=== PATIENT | male | born 1940 | race Caucasian/White ===

== ENCOUNTER → 2017-08-05 | Outpatient (CLI) | payer MEDICARE ==
[~2017-08-05] MED LIST: CALCAVITDA PO; Crestor20 MG; FISH1000 PO; GLUC500 PO; LEVSOD100; PANAX GINSENG PO; UBID10 PO
== END ==
LOC: LAB SHORT 07:33 → PLD 07:33
DX: D48.5 Neoplasm of uncertain behavior of skin (principal)
CPT/HCPCS: 88305

== ENCOUNTER → 2017-08-14 | Outpatient (CLI) | payer MEDICARE | LOC: LAB 15:38 → LAB SHORT 15:38 | DX: C30.0 Malignant neoplasm of nasal cavity (principal) | CPT/HCPCS: 88304; 88341; 88342 ==

== ENCOUNTER 2019-03-10 11:38 | Day surgery (SDC) | payer MEDICARE ==
[~2019-03-10] VITALS: Ht 167.6 cm; Wt 72.4 kg
[~2019-03-10 11:38] MED LIST changes: -Crestor20 MG; +Crestor20 MG PO; +DIAZ10 PO; +FISH OIL + D31 EACH PO; +FISH OIL PO; -FISH1000 PO; +Hair, Skin & N1 EACH PO; -LEVSOD100; +LEVSOD100 PO; +MAGNESIUM PO; +SIMBRINZA 1%-0.28 ML BOTHEYES; +TOCO1000 PO; +Travatan Z5 ML BOTHEYES
--- NOTE | 2019-03-10 12:42 | NUR ---
Ambulatory in Day Surgery Patient confirms NPO status and agrees with scheduled surgery. History, Chart, Medications and Allergies reviewed before start of procedure. Patient reports completing Chlorhexadine shower X2 prior to admission to hospital.Surgical site prepped with 2% Chlorhexidine cloth wipe. Lungs clear T/O to Auscultation. PATIENTS AT BEDSIDE. STATES PATIENT IS EASILY CONFUSED. PATIENT TEARFUL AT BEDSIDE. REASSURED
--- NOTE | 2019-03-10 19:12 | NUR ---
recvd report from previous shift RN mindi, pt a/0 x 4, pleasant/cooperative, sitting up in bed eating, call light within reach, bed rails up x2
--- NOTE | 2019-03-10 21:47 | NUR ---
pt repeats questions which have already been answered numerous times, appears to be forgetful, is unable to explain his procedure, will redirect well. up to bathroom with 2 nursing staff assist, gait belt, fww. spinal anesthesia during procedure, unable to urinate, bladder scanned showing 655 ml in bladder. straight catheter inserted and removed 550 ml.
[2019-03-11 04:24] LABS: BASOPHILS ABSOLUTE AUTO 0.01 K/mm3 (0.00-0.23); BASOPHILS PERCENT AUTO 0 % (0-2); EOSINOPHILS PERCENT AUTO 0 % (0-6); Hematocrit 41.1 % (37.0-53.0); Hemoglobin 13.6 g/dL (13.5-17.5); IMMATURE GRAN ABSOLUTE AUTO 0.05 K/mm3 (0.00-0.10); IMMATURE GRAN PERCENT AUTO 0 % (0-1); LYMPHOCYTES ABSOLUTE AUTO 0.85 K/mm3 (0.84-5.20); LYMPHOCYTES PERCENT AUTO 8 % (21-46); MONOCYTES ABSOLUTE AUTO 0.32 K/mm3 (0.16-1.47); MONOCYTES PERCENT AUTO 3 % (4-13); Mean Corpuscular HGB 32.7 pg (26.0-34.0); Mean Corpuscular HGB Conc 33.1 g/dL (31.5-36.5); Mean Corpuscular Volume 99 fL (80-100); Mean Platelet Volume 10.3 fL (9.1-12.4); NEUTROPHILS ABSOLUTE AUTO 10.15 K/mm3 (1.96-9.15); NEUTROPHILS PERCENT AUTO 89 % (41-73); Platelet Count 217 K/mm3 (150-400); RDW Coefficient Variation 12.5 % (11.7-14.2); RDW Standard Deviation 45.4 fL (35.1-46.3); Red Blood Cell Count 4.16 M/mm3 (4.30-5.90); White Blood Cell Count 11.38 K/mm3 (4.00-11.30)
[2019-03-11 04:44] LABS: Anion Gap 7 mmol/L (6-16); Blood Urea Nitrogen 28 mg/dL (8-24); Bun/Creatinine Ratio 28.3 (12.0-20.0); CO2, Blood 24 mmol/L (21-32); Calcium, Blood 8.9 mg/dL (8.5-10.1); Chloride, Blood 109 mmol/L (98-108); Creatinine, Blood 0.99 mg/dL (0.60-1.20); Glomerular Filtration Rate >60 (60-); Glucose, Blood 151 mg/dL (70-99); Magnesium, Blood 1.9 mg/dL (1.6-2.4); Potassium, Blood 4.1 mmol/L (3.5-5.5); Sodium, Blood 140 mmol/L (136-145)
--- NOTE | 2019-03-11 05:00 | NUR ---
shift summary: vss, no acute changes. pt tolerated PO intake with no n/v, encouraged PO fluids. pt up to bathroom x 2 this shift, unable to void earlier, required bladder scan with 655 ml in and straight cath. at approx 0330 pt able to void 100 ml. pt reports pain controlled per mar to his comfort level. pt forgetful at times, required redirection but follows instruction well. operative knee remains intact, good capillary refill, warms in toes, full sensation, able to stand and ambulate.
[2019-03-11] MEDS ORDERED: ASPI325 PO (13:36)
[2019-03-11] MEDS ORDERED: PROM25 PO (13:38)
[2019-03-11] MEDS ORDERED: OXYC5 PO (13:38)
--- NOTE | 2019-03-11 14:22 | NUR ---
PATIENT D/C'D HOME WITH AT THIS TIME; BOTH STATE UNDERSTANDING OF MEDS, WOUND CARE, ACTIVITY, F/U APPT, OP PT, ETC. TOLERATING DIET, VOIDING, PAIN CONTROLLED PER PATIENT. NO ACUTE CHANGES OR C/O.
--- NOTE | 2019-03-12 16:36 | NUR ---
03/12/19 1636 Kailey Ybarra VERIFICATIONS, CHART AUDITS.
== END 2019-03-11 14:20 | disposition home or self-care (01) ==
LOC: ORSCMMR 11:38 → ORD 13:40 → ORSCMMR 13:40 → SURS 18:03 → ORSCMMR 03-11 14:20
PROVIDERS: Orthopaedic Surgery
PROC: 0SRC0J9 Replacement of Right Knee Joint with Synthetic Substitute, Cemented, Open Approach (ICD-10-PCS; principal; 2019-03-10 13:40)
PROC: 8E0YXBZ Computer Assisted Procedure of Lower Extremity (ICD-10-PCS; principal; 2019-03-10 13:40)
DX: M17.11 Unilateral primary osteoarthritis, right knee (principal); E03.9 Hypothyroidism, unspecified; J44.9 Chronic obstructive pulmonary disease, unspecified; E78.5 Hyperlipidemia, unspecified; Z87.891 Personal history of nicotine dependence; Z79.899 Other long term (current) drug therapy
CPT/HCPCS: 36415; 51701; 73560-RT; 80048; 83735; 85025; 88300; 97110; 97116; 97162; 97530; A9270-GY; C1713; C1776; J0171; J0690; J0735; J1100; J1885; J2250; J2370; J2405; J2704; J2795; J3010; J3370; J7120

== ENCOUNTER → 2019-04-14 | Outpatient (CLI) | payer MEDICARE ==
[~2019-04-14] MED LIST changes: +ASPI325 PO; +OXYC5 PO; +PROM25 PO
[2019-04-14 10:55] LABS: BASOPHILS ABSOLUTE AUTO 0.06 K/mm3 (0.00-0.23); BASOPHILS PERCENT AUTO 1 % (0-2); EOSINOPHILS ABSOLUTE AUTO 0.23 K/mm3 (0.00-0.68); EOSINOPHILS PERCENT AUTO 2 % (0-6); Hemoglobin 13.2 g/dL (13.5-17.5); IMMATURE GRAN ABSOLUTE AUTO 0.03 K/mm3 (0.00-0.10); IMMATURE GRAN PERCENT AUTO 0 % (0-1); LYMPHOCYTES ABSOLUTE AUTO 2.03 K/mm3 (0.84-5.20); LYMPHOCYTES PERCENT AUTO 20 % (21-46); MONOCYTES ABSOLUTE AUTO 0.87 K/mm3 (0.16-1.47); MONOCYTES PERCENT AUTO 9 % (4-13); Mean Corpuscular HGB 32.8 pg (26.0-34.0); Mean Corpuscular Volume 99 fL (80-100); NEUTROPHILS ABSOLUTE AUTO 7.06 K/mm3 (1.96-9.15); NEUTROPHILS PERCENT AUTO 69 % (41-73); Platelet Count 334 K/mm3 (150-400); RDW Coefficient Variation 12.8 % (11.7-14.2); RDW Standard Deviation 46.6 fL (35.1-46.3); Red Blood Cell Count 4.03 M/mm3 (4.30-5.90); White Blood Cell Count 10.28 K/mm3 (4.00-11.30)
[2019-04-14 11:17] LABS: Albumin, Blood 3.7 g/dL (3.4-5.0); Albumin/Globulin Ratio 0.8 (0.8-1.8); Bilirubin, Total 0.4 mg/dL (0.1-1.0); Calcium, Blood 11.6 mg/dL (8.5-10.1); Creatinine, Blood 1.63 mg/dL (0.60-1.20); Globulin, Blood 4.4 g/dL (2.2-4.0); Potassium, Blood 3.4 mmol/L (3.5-5.5); Total Protein, Blood 8.1 g/dL (6.4-8.2)
== END | disposition home or self-care (01) ==
LOC: LAB SHORT 10:51 → LAB EV 10:51
PROVIDERS: Physician Assistant
DX: R04.2 Hemoptysis (principal)
CPT/HCPCS: 80053; 85025; 85379

== ENCOUNTER → 2019-04-16 | Outpatient (CLI) | payer MEDICARE ==
[2019-04-16 17:47] LABS: Albumin, Blood 3.4 g/dL (3.4-5.0); Albumin/Globulin Ratio 0.8 (0.8-1.8); Bilirubin, Total 0.2 mg/dL (0.1-1.0); Bun/Creatinine Ratio 20.4 (12.0-20.0); Calcium, Blood 9.8 mg/dL (8.5-10.1); Creatinine, Blood 1.57 mg/dL (0.60-1.20); Globulin, Blood 4.2 g/dL (2.2-4.0); Potassium, Blood 3.9 mmol/L (3.5-5.5); Total Protein, Blood 7.6 g/dL (6.4-8.2)
[2019-04-16 17:54] LABS: BASOPHILS ABSOLUTE AUTO 0.09 K/mm3 (0.00-0.23); BASOPHILS PERCENT AUTO 1 % (0-2); EOSINOPHILS ABSOLUTE AUTO 0.65 K/mm3 (0.00-0.68); EOSINOPHILS PERCENT AUTO 7 % (0-6); Hematocrit 37.4 % (37.0-53.0); IMMATURE GRAN ABSOLUTE AUTO 0.03 K/mm3 (0.00-0.10); IMMATURE GRAN PERCENT AUTO 0 % (0-1); LYMPHOCYTES ABSOLUTE AUTO 2.75 K/mm3 (0.84-5.20); LYMPHOCYTES PERCENT AUTO 31 % (21-46); MONOCYTES ABSOLUTE AUTO 0.79 K/mm3 (0.16-1.47); MONOCYTES PERCENT AUTO 9 % (4-13); Mean Corpuscular HGB 32.7 pg (26.0-34.0); Mean Corpuscular HGB Conc 32.1 g/dL (31.5-36.5); Mean Platelet Volume 10.1 fL (9.1-12.4); NEUTROPHILS ABSOLUTE AUTO 4.45 K/mm3 (1.96-9.15); NEUTROPHILS PERCENT AUTO 51 % (41-73); Platelet Count 274 K/mm3 (150-400); RDW Coefficient Variation 12.6 % (11.7-14.2); RDW Standard Deviation 47.2 fL (35.1-46.3); Red Blood Cell Count 3.67 M/mm3 (4.30-5.90); White Blood Cell Count 8.76 K/mm3 (4.00-11.30)
[2019-04-16 17:56] LABS: Mean Corpuscular Volume 102 fL (80-100)
== END | disposition home or self-care (01) ==
LOC: LAB SHORT 17:22 → LAB EV 17:22
PROVIDERS: Physician Assistant
DX: R53.83 Other fatigue (principal)
CPT/HCPCS: 80053; 85025

== ENCOUNTER → 2020-08-07 | Outpatient (CLI) | payer MEDICARE ==
[2020-08-08 09:54] LABS: Stool Occult Bld Immuno 1 Negative (NEGATIVE); Stool Occult Bld Immuno 2 Negative (NEGATIVE); Stool Occult Bld Immuno 3 Negative (NEGATIVE)
== END | disposition home or self-care (01) ==
LOC: LAB SHORT 15:19 → LAB EV 15:19
PROVIDERS: Physician Assistant
DX: D50.9 Iron deficiency anemia, unspecified (principal)
CPT/HCPCS: 82274

== ENCOUNTER → 2021-02-12 | Outpatient (CLI) | payer MEDICARE ==
[~2021-02-12] MED LIST changes: +EUTHYROX100 MCG PO; +OMEP20ER PO
[2021-02-14 14:38] LABS: CORONAVIRUS (COVID19) CSH-NRL Negative (Negative)
== END ==
LOC: LAB SHORT 12:41 → LAB 12:41
PROVIDERS: Physician Assistant
DX: Z20.822 Contact with and (suspected) exposure to COVID-19 (principal); Z88.8 Allergy status to other drugs, medicaments and biological substances
CPT/HCPCS: U0003

== ENCOUNTER 2021-03-12 19:43 | Inpatient (IN) | payer MEDICARE ==
[~2021-03-12] VITALS: Ht 172.7 cm; Wt 75.7 kg
[~2021-03-12 19:43] MED LIST changes: -EUTHYROX100 MCG PO; -OMEP20ER PO
[2021-03-12 20:43] LABS: BASOPHILS PERCENT AUTO 1 % (0-2); EOSINOPHILS ABSOLUTE AUTO 0.29 K/mm3 (0.00-0.68); EOSINOPHILS PERCENT AUTO 2 % (0-6); Hematocrit 34.2 % (37.0-53.0); IMMATURE GRAN ABSOLUTE AUTO 0.05 K/mm3 (0.00-0.10); IMMATURE GRAN PERCENT AUTO 0 % (0-1); LYMPHOCYTES ABSOLUTE AUTO 3.48 K/mm3 (0.84-5.20); LYMPHOCYTES PERCENT AUTO 28 % (21-46); MONOCYTES ABSOLUTE AUTO 1.13 K/mm3 (0.16-1.47); MONOCYTES PERCENT AUTO 9 % (4-13); Mean Corpuscular HGB 32.3 pg (26.0-34.0); Mean Corpuscular HGB Conc 32.2 g/dL (31.5-36.5); Mean Corpuscular Volume 100 fL (80-100); Mean Platelet Volume 10.8 fL (9.1-12.4); NEUTROPHILS ABSOLUTE AUTO 7.36 K/mm3 (1.96-9.15); NEUTROPHILS PERCENT AUTO 59 % (41-73); Platelet Count 254 K/mm3 (150-400); RDW Coefficient Variation 12.3 % (11.7-14.2); RDW Standard Deviation 44.8 fL (35.1-46.3); Red Blood Cell Count 3.41 M/mm3 (4.30-5.90); White Blood Cell Count 12.41 K/mm3 (4.00-11.30)
[2021-03-12 21:06] LABS: Albumin, Blood 3.1 g/dL (3.4-5.0); Albumin/Globulin Ratio 0.9 (0.8-1.8); Bilirubin, Total 0.2 mg/dL (0.1-1.0); Bun/Creatinine Ratio 42.4 (12.0-20.0); Creatinine, Blood 1.32 mg/dL (0.60-1.20); Globulin, Blood 3.3 g/dL (2.2-4.0); Potassium, Blood 4.1 mmol/L (3.5-5.5); Total Protein, Blood 6.4 g/dL (6.4-8.2)
[2021-03-12 21:37] LABS: Prothrombin Time Results 11.8 Sec (9.7-11.5)
[2021-03-13 01:15] LABS: BASOPHILS ABSOLUTE AUTO 0.08 K/mm3 (0.00-0.23); BASOPHILS PERCENT AUTO 1 % (0-2); EOSINOPHILS ABSOLUTE AUTO 0.04 K/mm3 (0.00-0.68); EOSINOPHILS PERCENT AUTO 0 % (0-6); Hematocrit 29.5 % (37.0-53.0); Hemoglobin 9.6 g/dL (13.5-17.5); IMMATURE GRAN ABSOLUTE AUTO 0.08 K/mm3 (0.00-0.10); IMMATURE GRAN PERCENT AUTO 1 % (0-1); LYMPHOCYTES ABSOLUTE AUTO 3.17 K/mm3 (0.84-5.20); LYMPHOCYTES PERCENT AUTO 26 % (21-46); MONOCYTES ABSOLUTE AUTO 0.71 K/mm3 (0.16-1.47); MONOCYTES PERCENT AUTO 6 % (4-13); Mean Corpuscular HGB Conc 32.5 g/dL (31.5-36.5); Mean Corpuscular Volume 98 fL (80-100); Mean Platelet Volume 10.4 fL (9.1-12.4); NEUTROPHILS ABSOLUTE AUTO 8.08 K/mm3 (1.96-9.15); NEUTROPHILS PERCENT AUTO 66 % (41-73); Platelet Count 207 K/mm3 (150-400); RDW Coefficient Variation 12.4 % (11.7-14.2); RDW Standard Deviation 44.3 fL (35.1-46.3); White Blood Cell Count 12.16 K/mm3 (4.00-11.30)
[2021-03-13 02:12] LABS: SARS-Cov-2 (COVID-19) PCR, MMC NEGATIVE (NEGATIVE)
--- NOTE | 2021-03-13 05:02 | NUR ---
SHIFT SUMMARY- PT. NEW ADMIT FROM ED WITH DX OF GI BLEED. A&OX2 WITH SOME CONFUSION. PT. AMBULATES TO BATHROOM WITH 1 ASSIST. HAD NO COMPLAINTS OF PAIN OR DISCOMFORT T/O THE NIGHT. NO EPISODES OF VOMITING LAST NIGHT. PROTONIX GTT AND FLUIDS INFUSING, TOLERATING WELL. PT. SCHEDULED FOR EGD THIS AFTERNOON. VSS. CALL LIGHT WITHIN REACH, SIDE RAILS UPX2, AND BED ALARM ON FOR SAFETY. WILL CONT TO MONITOR.
[2021-03-13 05:48] LABS: BASOPHILS ABSOLUTE AUTO 0.06 K/mm3 (0.00-0.23); BASOPHILS PERCENT AUTO 1 % (0-2); EOSINOPHILS ABSOLUTE AUTO 0.15 K/mm3 (0.00-0.68); EOSINOPHILS PERCENT AUTO 2 % (0-6); Hematocrit 27.1 % (37.0-53.0); Hemoglobin 8.9 g/dL (13.5-17.5); IMMATURE GRAN ABSOLUTE AUTO 0.06 K/mm3 (0.00-0.10); IMMATURE GRAN PERCENT AUTO 1 % (0-1); LYMPHOCYTES ABSOLUTE AUTO 3.11 K/mm3 (0.84-5.20); LYMPHOCYTES PERCENT AUTO 30 % (21-46); MONOCYTES ABSOLUTE AUTO 0.96 K/mm3 (0.16-1.47); MONOCYTES PERCENT AUTO 9 % (4-13); Mean Corpuscular HGB 32.7 pg (26.0-34.0); Mean Corpuscular HGB Conc 32.8 g/dL (31.5-36.5); Mean Corpuscular Volume 100 fL (80-100); Mean Platelet Volume 10.8 fL (9.1-12.4); NEUTROPHILS ABSOLUTE AUTO 5.99 K/mm3 (1.96-9.15); NEUTROPHILS PERCENT AUTO 58 % (41-73); Platelet Count 192 K/mm3 (150-400); RDW Coefficient Variation 12.5 % (11.7-14.2); RDW Standard Deviation 44.7 fL (35.1-46.3); Red Blood Cell Count 2.72 M/mm3 (4.30-5.90); White Blood Cell Count 10.33 K/mm3 (4.00-11.30)
[2021-03-13 06:10] LABS: Alanine Aminotransfer (ALT/SGP 19 U/L (12-78); Albumin, Blood 2.7 g/dL (3.4-5.0); Alk Phos 46 U/L (50-136); Anion Gap 3 mmol/L (6-16); Aspartate Aminotrans (AST/SGOT 16 U/L (12-37); Bilirubin, Total 0.2 mg/dL (0.1-1.0); Blood Urea Nitrogen 63 mg/dL (8-24); Bun/Creatinine Ratio 59.4 (12.0-20.0); CO2, Blood 23 mmol/L (21-32); Calcium, Blood 7.9 mg/dL (8.5-10.1); Chloride, Blood 118 mmol/L (98-108); Creatinine, Blood 1.06 mg/dL (0.60-1.20); Globulin, Blood 2.8 g/dL (2.2-4.0); Glomerular Filtration Rate >60 (60-); Glucose, Blood 89 mg/dL (70-99); Sodium, Blood 144 mmol/L (136-145); Total Protein, Blood 5.5 g/dL (6.4-8.2)
--- NOTE | 2021-03-13 06:29 | NUR ---
RT RESPONDED TO RAPID RESPONSE. NO RESP DISTRESS NOTED. SPO2 97% ON RA. RT EXCUSED.
[2021-03-13 06:39] LABS: Hematocrit 26.7 % (37.0-53.0); Hemoglobin 8.7 g/dL (13.5-17.5)
--- NOTE | 2021-03-13 07:40 | NUR ---
ASSUMED CARE OF PATIENT AT APPROX 0700; PT ALERT, ORIENTED TO PERSON, EVENT, SURROUNDING AND FOLLOWING DIRECTIONS. PT UNSURE OF DATE/TIME AND PLACE. PT PLEASNTLY CONFUSED, HX DEMENTIA AT BASELINE. PT RECEIVING 1 UNIT PRBC; BP HYPOTENSIVE PRIOR TO INFUSION STARTING, BP TRENDING UP, APPEARS TO BE TOLERATING WELL. PT DENIES PAIN, CHEST PAIN, SOB, NASUEA AND DIZZINESS AT THIS TIME. OTHER VSS. NO OTHER ACUTE CHANGES. PT LEAVING WITH DAY SURGERY FOR SCOPE. UPDATED SPOUSE BEFORE PATIENT LEFT ROOM.
--- NOTE | 2021-03-13 07:40 | NUR ---
03/13/21 0740 Madhuri Alves History, Chart, Medications and Allergies reviewed before start of procedure. 3-LEAD EKG REVIEWED WITH PHYSICIAN PRIOR TO START OF PROCEDURE. MONITOR INTACT WITH CONTINUOUS PULSE OXIMETRY AND INTERMITTENT BP. O2 VIA N/C INTACT THROUGHOUT SEDATION/PROCEDURE. PATIENT DETERMINED TO BE ASA APPROPRIATE FOR PROPOFOL SEDATION PRIOR TO START OF PROCEDURE BY DR. HUNT.
--- NOTE | 2021-03-13 09:55 | NUR ---
PATIENT BACK TO ROOM THIS AFTER SCOPE, APPEAR TO HAVE INCREASED CONFUSION. VSS. CONTINUING PROTONIX AND IV FLUIDS. PRBC COMPLETED. PT SPOUSE UPDATED. BED ALARM ON, CALL LIGHT WITHIN REACH, BED IN LOW. WILL CONTINUE TO MONITOR.
[2021-03-13 10:48] LABS: Hematocrit 29.1 % (37.0-53.0); Hemoglobin 9.7 g/dL (13.5-17.5)
--- NOTE | 2021-03-13 18:34 | NUR ---
SHIFT SUMMARY PT A&Ox2; HX OF DEMENTIA; ORIENTED TO SELF AND EVENT, UNSURE OF PLACE AND DATE/TIME. PT DENIES PAIN, CHEST PAIN, SOB, NASUEA AND DIZZINESS. NO HEMATEMESIS NOTED DURING SHIFT; THIS EVENING PT HAD BLACK HARD PELLET BM. PT SETTING OFF BED ALARM INSTEAD OF USING CALL LIGHT; BED ALARM ON PLACE. BP SOFT BUT STABLE, OTHER VSS. PT RECEIVING IV FLUID AND PROTONIX GTT. UP TO BSC WITH 1 PERSON ASSIST. UPDATED ON STATUS, PER DR HUNT PLANS TO BE ADMITTED FOR 72HR OF PROTONIX. WILL COTZIANUE TO MONITOR.
[2021-03-13 18:52] LABS: Hematocrit 26.4 % (37.0-53.0); Hemoglobin 8.9 g/dL (13.5-17.5)
[2021-03-13 23:47] LABS: Source, Urine Catheter
[2021-03-13 23:54] LABS: Bilirubin, Urine Neg (Neg); Blood, Urine Neg (Neg); Glucose Qualitative, Urine Neg (Neg); Ketones, Urine Neg (Neg); Leukocyte Esterase, Urine Neg (Neg); Nitrite, Urine Neg (Neg); Protein, Urine Neg (Neg); Urobilinogen, Urine NORM (Normal)
[2021-03-13 23:56] LABS: Appearance, Urine Clear (Clear); Color, Urine Yellow (P-Yellow)
[2021-03-14 00:32] LABS: Hematocrit 21.3 % (37.0-53.0); Hemoglobin 7.1 g/dL (13.5-17.5)
--- NOTE | 2021-03-14 02:34 | NUR ---
HOSPITALIST NOTIFIED HOSPITALIST NOTIFIED OF HYPOTENSION & HEMATOCRIT OF 7.1, 1 LITER LR BOLUS ORDERED TO BE GIVEN AT THIS TIME. [facility]&H WILL FOLLOW.
[2021-03-14 05:13] LABS: Hematocrit 20.8 % (37.0-53.0); Hemoglobin 6.9 g/dL (13.5-17.5)
--- NOTE | 2021-03-14 05:33 | NUR ---
CALLED DR. CARTAGENA TO REPORT DROP IN HEMOGLOBIN; DROP IN BP EVEN AFTER BOLUS EARLIER; ORDERS FOR 1 UNIT PRBC AND 1 L LR BOLUS; RECHECK HEMOGLOBIN A HALF HOUR AFTER RBC INFUSED.
--- NOTE | 2021-03-14 07:24 | NUR ---
SHIFT SUMMARY PT REMAINS PLEASANTLY CONFUSED & ALERT, ON ROOM AIR. PT HAS BEEN GIVEN 2,000 ML'S BOLUS OF LR DUE TO HYPOTENSION & [id number] OF 6.9. PT REMAINS ASYMPTOMATIC. VOIDING WNL, TOLERATING PO INTAKE, DENIES PAIN/NAUSEA, NO BLOODY STOOLS NOTED. REPORT GIVEN TO DAY RN, CALL LIGHT IN REACH, BLOOD VERIFIED AT BEDSIDE.
[2021-03-14 11:43] LABS: Hematocrit 24.4 % (37.0-53.0); Hemoglobin 8.2 g/dL (13.5-17.5)
--- NOTE | 2021-03-14 16:50 | NUR ---
PT WITH ONE BM TODAY THAT WAS DARK BROWN AND FORMED. PT HAS 2 UNITS PRBC. ALERT PLEASANTLY CONFUSED. PT A/O X2, ANSWERS MOST QUESTIONS APPROPRIATELY. IS UPDATED ON STATUS. DR HUNT WAS IN THIS EVENING TO SEE PT HE WILL FOLLOWUP AGAIN TOMORROW. PT IS AN SBA TO BEDSIDE TO USE URINAL.
[2021-03-14 21:16] LABS: Hematocrit 26.8 % (37.0-53.0); Hemoglobin 9.1 g/dL (13.5-17.5)
--- NOTE | 2021-03-15 01:15 | NUR ---
MD WAS NOTIFED THE PATIENT'S BLOOD PRESSURE WAS 100/44 WITH A MAP OF 62. PT WAS ASYMPTOMATIC AND WAS SLEEPING. NEW ORDERS WERE PUT IN SEE EMAR. WILL CONTINUE TO MONITOR.
[2021-03-15 03:26] LABS: BASOPHILS ABSOLUTE AUTO 0.05 K/mm3 (0.00-0.23); BASOPHILS PERCENT AUTO 1 % (0-2); EOSINOPHILS ABSOLUTE AUTO 0.47 K/mm3 (0.00-0.68); EOSINOPHILS PERCENT AUTO 6 % (0-6); Hematocrit 26.6 % (37.0-53.0); IMMATURE GRAN ABSOLUTE AUTO 0.03 K/mm3 (0.00-0.10); IMMATURE GRAN PERCENT AUTO 0 % (0-1); LYMPHOCYTES ABSOLUTE AUTO 2.41 K/mm3 (0.84-5.20); LYMPHOCYTES PERCENT AUTO 28 % (21-46); MONOCYTES PERCENT AUTO 11 % (4-13); Mean Corpuscular HGB 31.7 pg (26.0-34.0); Mean Corpuscular HGB Conc 33.8 g/dL (31.5-36.5); Mean Corpuscular Volume 94 fL (80-100); Mean Platelet Volume 10.4 fL (9.1-12.4); NEUTROPHILS ABSOLUTE AUTO 4.64 K/mm3 (1.96-9.15); NEUTROPHILS PERCENT AUTO 55 % (41-73); NRBC ABSOLUTE 0.03 K/mm3 (0.00-0.02); NRBC Auto 0.4 /100 WBC (0.0-0.2); Platelet Count 151 K/mm3 (150-400); RDW Coefficient Variation 14.9 % (11.7-14.2); RDW Standard Deviation 49.9 fL (35.1-46.3); Red Blood Cell Count 2.84 M/mm3 (4.30-5.90)
[2021-03-15 03:50] LABS: Alanine Aminotransfer (ALT/SGP 28 U/L (12-78); Albumin, Blood 2.5 g/dL (3.4-5.0); Alk Phos 43 U/L (50-136); Anion Gap 3 mmol/L (6-16); Aspartate Aminotrans (AST/SGOT 46 U/L (12-37); Bilirubin, Total 0.4 mg/dL (0.1-1.0); Blood Urea Nitrogen 19 mg/dL (8-24); Bun/Creatinine Ratio 19.9 (12.0-20.0); CO2, Blood 22 mmol/L (21-32); Calcium, Blood 7.5 mg/dL (8.5-10.1); Chloride, Blood 122 mmol/L (98-108); Creatinine, Blood 0.96 mg/dL (0.60-1.20); Globulin, Blood 2.4 g/dL (2.2-4.0); Glomerular Filtration Rate >60 (60-); Glucose, Blood 85 mg/dL (70-99); Potassium, Blood 3.3 mmol/L (3.5-5.5); Sodium, Blood 147 mmol/L (136-145); Total Protein, Blood 4.9 g/dL (6.4-8.2)
--- NOTE | 2021-03-15 05:28 | NUR ---
SHIFT SUMMARY PATIENT IS RESTING COMFORTABLE IN BED. PATIENT WAS CONFUSED AND RESTLES AT THE START OF SHIFT BUT CALMED DOWN AT AROUND 2230 TO GO TO BED. THE PATIENT HAD A SOFT BLOOD PRESSURE MD WAS NOTIFIED SEE NOTES AND ORDERS. BED ALARM WAS TURNED ON DURING THE NIGHT. HGB HAS BEEN STABLE THE WHOLE NIGHT. CALL LIGHT IS IN REACH. BED ALARM IS STILL ON. BED IS IN LOW POSITION. WILL CONTINUE TO MONITOR. NO BLOODY NAUSE OR DIARRHEA DURING THE SHIFT.
[2021-03-15 09:10] LABS: Hematocrit 27.8 % (37.0-53.0); Hemoglobin 9.3 g/dL (13.5-17.5)
[2021-03-15 10:15] LABS: Magnesium, Blood 2.2 mg/dL (1.6-2.4); Thyroid Stimulating Hormone 9.99 uIU/mL (0.360-4.800)
--- NOTE | 2021-03-15 10:40 | NUR ---
PT WITH POSTASSIUM INFUSING WITH TOTAL OF 9.5MEQ/HR ON PUMP AT THIS TIME, DOSE CALCULATION WAS CONFIRMED BY THIS RN AND ZEE LEON
--- NOTE | 2021-03-15 15:19 | NUR ---
UPDATE 03/15/21: PER CHART REVIEW, NO SIGNIFICANT CHANGES NOTED OVER NIGHT. PT/OT LARISSA COMPLETED TODAY WITH RECOMMENDATION OF HOME SUPERVISION. PT. DOES HAVE SOME COGNITIVE IMPAIRMENT. LIVES AT HOME WITH RAMY. CONTACTED RAMY THIS AFTERNOON TO PROVIDE UPDATES AND DISCUSS CARE COORDINATION. SHE IS VERY CONFIDENT THAT PT. WILL DO WELL AT HOME. DENIED CONCERNS FOR SAFETY OR BARRIERS TO D/C WHEN APPROPRIATE. RAMY DID EXPRESS THAT THE CONDITION LINDA WAS IN JUST PRIOR TO ADMIT WAS VERY TRAUMATIC AND SHE IS FEARFUL THAT HE MIGHT DEVELOP A GI BLEED AGAIN. I ASSURED HER THAT PT. WAS RECEIVING EXCELLENT CARE. HE WILL NOT DISCHARGE UNTIL DIET HAS ADVANCED AND HE HIS CONDITION HAS IMPROVED. SHE REQUESTED THAT I RELAY HER FEAR TO DR. RIZVI AND I HAVE. PT. HAS WALKER, RAISED TOILET SEAT, AND SHOWER CHAIR AT HOME. RAMY DENIED ANY ADDITIONAL NEEDS PRIOR TO DISCHARGE. ANTICIPATE NEEDS AT TIME OF DISCHARGE TO INCLUDE: F/U LABS, HOSPITAL F/U WITHIN 5-7 DAYS, F/U APPT. WITH GI.
--- NOTE | 2021-03-15 18:07 | NUR ---
SHIFT SUMMARY PATIENT IS RESTING COMFORTABLY IN BED. VSS WITH MAPS ABOVE 70. PATIENT ORIENTED TO SELF AND IS VERY FORGETFUL. PT/OT WORKED WITH THE PATIENT TODAY. PATIENT ABLE TO AMBULATE SBA WITH FWW, AND SIT UP TO CHAIR WITH CHAIR ALARM. NO NAUSEA, ABDOMINAL PAIN OR HEMATEMESIS REPORTED TO NURSING STAFF. PROTONIX GTT @ 10 MLS/HR. PATIENT ABLE TO TOLERATE CLEAR LIQUID DIET. NO SIGNIFICANT CHANGES THIS SHIFT.
[2021-03-15 20:36] LABS: Hematocrit 30.5 % (37.0-53.0); Hemoglobin 10.3 g/dL (13.5-17.5)
[2021-03-16 02:19] LABS: BASOPHILS ABSOLUTE AUTO 0.06 K/mm3 (0.00-0.23); BASOPHILS PERCENT AUTO 1 % (0-2); EOSINOPHILS ABSOLUTE AUTO 0.65 K/mm3 (0.00-0.68); EOSINOPHILS PERCENT AUTO 8 % (0-6); Hematocrit 28.6 % (37.0-53.0); Hemoglobin 9.7 g/dL (13.5-17.5); IMMATURE GRAN ABSOLUTE AUTO 0.02 K/mm3 (0.00-0.10); IMMATURE GRAN PERCENT AUTO 0 % (0-1); LYMPHOCYTES ABSOLUTE AUTO 2.42 K/mm3 (0.84-5.20); LYMPHOCYTES PERCENT AUTO 28 % (21-46); MONOCYTES ABSOLUTE AUTO 0.95 K/mm3 (0.16-1.47); MONOCYTES PERCENT AUTO 11 % (4-13); Mean Corpuscular HGB Conc 33.9 g/dL (31.5-36.5); Mean Corpuscular Volume 94 fL (80-100); Mean Platelet Volume 10.3 fL (9.1-12.4); NEUTROPHILS ABSOLUTE AUTO 4.58 K/mm3 (1.96-9.15); NEUTROPHILS PERCENT AUTO 53 % (41-73); NRBC ABSOLUTE 0.03 K/mm3 (0.00-0.02); NRBC Auto 0.3 /100 WBC (0.0-0.2); Platelet Count 167 K/mm3 (150-400); RDW Coefficient Variation 15.3 % (11.7-14.2); RDW Standard Deviation 51.5 fL (35.1-46.3); Red Blood Cell Count 3.03 M/mm3 (4.30-5.90); White Blood Cell Count 8.68 K/mm3 (4.00-11.30)
[2021-03-16 02:39] LABS: Alanine Aminotransfer (ALT/SGP 28 U/L (12-78); Albumin, Blood 2.6 g/dL (3.4-5.0); Alk Phos 50 U/L (50-136); Anion Gap 2 mmol/L (6-16); Aspartate Aminotrans (AST/SGOT 41 U/L (12-37); Bilirubin, Total 0.8 mg/dL (0.1-1.0); Blood Urea Nitrogen 12 mg/dL (8-24); Bun/Creatinine Ratio 11.9 (12.0-20.0); CO2, Blood 24 mmol/L (21-32); Chloride, Blood 119 mmol/L (98-108); Creatinine, Blood 1.01 mg/dL (0.60-1.20); Globulin, Blood 2.6 g/dL (2.2-4.0); Glomerular Filtration Rate >60 (60-); Glucose, Blood 88 mg/dL (70-99); Potassium, Blood 3.5 mmol/L (3.5-5.5); Sodium, Blood 145 mmol/L (136-145); Total Protein, Blood 5.2 g/dL (6.4-8.2)
--- NOTE | 2021-03-16 06:09 | NUR ---
SHIFT SUMMARY PT. ALERT, ORIENTATED, AND WEAK AT BEDSIDE. AT START OF SHIFT ON CPAP AT 95% MAINTAINING O2 ABOVE 89% WITH LABORED RESPIRATIONS. PT. IS ABLE TO MOVE UPPER EXTREMITIES BUT WEAK AND BARELY ABLE TO MOVE LOWER EXTREMITIES. TRIED TO REPOSITION T/O THE NIGHT BUT GETS EXTREMELY ANXIOUS AND REFUSED. PT. STATED ABLE TO BREATH BETTER ON HIS BACK WITH THE HEAD OF THE BED ELEVATED. EDUCATED PT. ON PRONING AND TRYING TO REPOSITION ON HIS SIDE BUT REFUSED AFTER MIDNIGHT. PT. WAS NOT ABLE TO TOLERATE PO INTAKE AND DID REFUSE SOME OF HIS MEDICATION BECAUSE WAS HAVING A HARD TIME SWALLOWING PILLS, WOULD DESAT. AND REFUSED MEDICATION. AROUND 3:00-4:00AM PT. STARTED TO DESAT AND CALLED DR. CARTAGENA ORDERS WERE GIVEN TO GIVE I.V. LAXIS. AROUND 4:30AM PT. STARTED TO DESAT AGAIN BECAME EXTREMELY ANXIOUS WHEN SAW BEDSIDE O2 MONITOR AT 77% BUT OUTSIDE O2 MONITOR AT 89%. PT. WAS TRYING TO BREATH FASTER. EXPLAINED TO PT. WHAT WAS GOING ON AND O2 WAS OKAY BUT WAS DESATING. RESPIRATORY THERAPY WAS CALLED TO BEDSIDE AND CPAP SETTINGS CHANGED TO FIO2 AT 100%. INTERNAL SALESPERSONNICKIE T. CAME TO BEDSIDE AND CHARGE NURSE LUIS WAS MADE AWARE. GAVE ORDERED ATIVAN AND MORPHINE WAS GIVEN. DR. CARTAGENA WAS MADE AWARE PT. WAS IN THE LOW 80'S OXYGENT WITH INCREASED RESPIRATIONS AND ELEVATED HR SUSTAINING IN THE 130'S. PER DR. CARTAGENA GAVE ALL THE MEDICATION HE COULD. PT. IS DNI AND WAS AWARE. DR. CARTAGENA DID COME SEE PT. AT BEDSIDE. PT. BECOMING MORE STABLE 02 ABOVE 89% AND SUSTAINING HR IN THE 130'S. PER DR. CARTAGENA CONT. TO MONITOR PT. NO MORE ORDERS GIVEN. PER DR. CARTAGENA DO NOT CALL THE YET SINCE PT. SUSTAINING O2 STATS ABOVE 89%. ESQUIVEL IN PLACE WITH YELLOW URINE OUTPUT AND HAS A RECTAL TUBE IN PLACE. WILL CONT. TO MONITOR PT. TILL SHIFT CHANGE.
--- NOTE | 2021-03-16 07:37 | NUR ---
SHIFT SUMMARY PT. ALERT AND ORIENTATED, CONFUSED AT TIMES WITH HISTORY OF DEMENTIA. ON RA. FREQUENT CHECKS SINCE DOES NOT USE THE CALL LIGHT. PT. ON BED ALARM. USES BEDSIDE URINAL APPROPRIATELY. V.S. STABLE T/O THE NIGHT. NO CHANGES. WILL CONT. TO MONITOR AND GAVE REPORT TO DAY SHIFT RN.
[2021-03-16 08:22] LABS: Hematocrit 29.5 % (37.0-53.0); Hemoglobin 9.9 g/dL (13.5-17.5)
--- NOTE | 2021-03-16 13:03 | NUR ---
03/16/21- per chart review with Dr. Leung, pt is stable to discharge home with home health. Spoke with pt who reports that he lives at home with his . They live in a single story home with working utilities and there is 1-stair to get into the home. still drives and will be coming to pick him up. Their pharmacy is [facility]. Spoke with also and she will come to get him and go over discharge instructions because pt has memory issues. -yenni
[2021-03-16] MEDS ORDERED: DIAZ10 PO (13:27)
[2021-03-16] MEDS ORDERED: EUTHYROX100 MCG PO (13:28)
[2021-03-16] MEDS ORDERED: OMEP20ER PO (13:29)
[2021-03-16] MEDS ORDERED: Crestor20 MG PO (13:30)
--- NOTE | 2021-03-16 14:30 | NUR ---
PT AND SPOUSE EDUCATED NUMEROUS TIMES ABOUT PRILOSEC ADMINSTRATION AND USEAGE, AND CHANGE TO CHEWABLE ASA. PT AND FAMILY AFTER EXTENDED EDUCATION EXPRESSED UNDERSTANDING OF EDUCATION. IV REMOVED AND PRESSURE DRESSED.
== END 2021-03-16 16:57 | disposition home or self-care (01) | DRG 381 ==
LOC: ER 19:43 → SURS 19:44
PROVIDERS: Family Medicine; Internal Medicine; Internal Medicine Gastroenterology; Student in an Organized Health Care Education/Training Program; ADMIT Hospitalist
PROC: 30233N1 Transfusion of Nonautologous Red Blood Cells into Peripheral Vein, Percutaneous Approach (ICD-10-PCS; 2021-03-13)
PROC: 0W3P8ZZ Control Bleeding in Gastrointestinal Tract, Via Natural or Artificial Opening Endoscopic (ICD-10-PCS; principal; 2021-03-13 07:45)
PROC: 0DJ08ZZ Inspection of Upper Intestinal Tract, Via Natural or Artificial Opening Endoscopic (ICD-10-PCS; 2021-03-13 07:45)
DX: K22.11 Ulcer of esophagus with bleeding (principal); D62 Acute posthemorrhagic anemia; N17.9 Acute kidney failure, unspecified; I95.9 Hypotension, unspecified; R00.0 Tachycardia, unspecified; Z20.822 Contact with and (suspected) exposure to COVID-19; E78.5 Hyperlipidemia, unspecified; N18.9 Chronic kidney disease, unspecified; M19.90 Unspecified osteoarthritis, unspecified site; E03.9 Hypothyroidism, unspecified; Z79.82 Long term (current) use of aspirin; Z79.899 Other long term (current) drug therapy; Z87.891 Personal history of nicotine dependence; Z88.8 Allergy status to other drugs, medicaments and biological substances; Z98.890 Other specified postprocedural states; Z98.49 Cataract extraction status, unspecified eye
CPT/HCPCS: 36415; 36430; 80053; 81003; 83735; 84443; 85014; 85018; 85025; 85610; 85730; 86850; 86900; 86901; 86923; 93005; 93010; 96361; 96365; 96374; 96376; 97112; 97116; 97161; 97166; 97530; 97535; 99285-25; A9270; C9113; G0378; J0171; J2250; J2405; J2704; J2765; J3480; J7030; J7050; J7120; P9016; U0004

== ENCOUNTER → 2021-04-17 | Outpatient (CLI) | payer MEDICARE ==
[~2021-04-17] MED LIST changes: +EUTHYROX100 MCG PO; +OMEP20ER PO
== END ==
LOC: LAB 10:58 → LAB SHORT 10:58
DX: D48.5 Neoplasm of uncertain behavior of skin (principal); L98.499 Non-pressure chronic ulcer of skin of other sites with unspecified severity
CPT/HCPCS: 88305

== ENCOUNTER → 2023-04-17 | Outpatient (CLI) | payer MEDICARE ==
[2023-04-17 12:06] LABS: BASOPHILS ABSOLUTE AUTO 0.07 K/mm3 (0.00-0.23); BASOPHILS PERCENT AUTO 1 % (0-2); EOSINOPHILS ABSOLUTE AUTO 0.23 K/mm3 (0.00-0.68); EOSINOPHILS PERCENT AUTO 2 % (0-6); Hematocrit 42.8 % (37.0-53.0); IMMATURE GRAN ABSOLUTE AUTO 0.04 K/mm3 (0.00-0.10); IMMATURE GRAN PERCENT AUTO 0 % (0-1); LYMPHOCYTES ABSOLUTE AUTO 2.31 K/mm3 (0.84-5.20); LYMPHOCYTES PERCENT AUTO 20 % (21-46); MONOCYTES ABSOLUTE AUTO 1.17 K/mm3 (0.16-1.47); MONOCYTES PERCENT AUTO 10 % (4-13); Mean Corpuscular HGB Conc 32.7 g/dL (31.5-36.5); Mean Corpuscular Volume 92 fL (80-100); NEUTROPHILS ABSOLUTE AUTO 7.77 K/mm3 (1.96-9.15); NEUTROPHILS PERCENT AUTO 67 % (41-73); Platelet Count 308 K/mm3 (150-400); RDW Coefficient Variation 12.8 % (11.7-14.2); RDW Standard Deviation 42.5 fL (35.1-46.3); Red Blood Cell Count 4.67 M/mm3 (4.30-5.90); White Blood Cell Count 11.59 K/mm3 (4.00-11.30)
[2023-04-17 12:25] LABS: Albumin, Blood 3.1 g/dL (3.4-5.0); Albumin/Globulin Ratio 0.6 (0.8-1.8); Bilirubin, Total 0.7 mg/dL (0.1-1.0); Bun/Creatinine Ratio 22.4 (12.0-20.0); Calcium, Blood 9.9 mg/dL (8.5-10.1); Creatinine, Blood 1.16 mg/dL (0.60-1.20); Globulin, Blood 4.9 g/dL (2.2-4.0); Potassium, Blood 4.1 mmol/L (3.5-5.5)
== END ==
LOC: LAB SHORT 12:02 → LAB 12:02
PROVIDERS: Chiropractor
DX: R10.9 Unspecified abdominal pain (principal)
CPT/HCPCS: 80053; 85025